=== PATIENT | female | born 1940 | race Caucasian/White ===

== ENCOUNTER → 2016-06-28 | Outpatient (CLI) | payer MEDICARE, BC ==
[2016-06-28 09:18] LABS: CHLORIDE,CL 109 mmol/L (98-110); SODIUM,NA 144 mmol/L (136-146)
== END ==
LOC: MW.CHFP 08:18
PROVIDERS: ATTEND Emergency Medicine
DX: I10 Essential (primary) hypertension (principal)
CPT/HCPCS: 36415; 80048; 80061; 99214

== ENCOUNTER → 2016-07-15 | Outpatient (CLI) | payer MEDICARE, BC | LOC: MW.CHFP 08:00 | PROVIDERS: ATTEND Emergency Medicine | DX: M81.0 Age-related osteoporosis without current pathological fracture (principal) | CPT/HCPCS: 96372; J0897 ==

== ENCOUNTER → 2016-08-24 | Outpatient (CLI) | payer MEDICARE, BC ==
--- NOTE | 2016-08-29 14:27 | MY ---
EXAMINATION: Bilateral digital mammography utilizing CAD. HISTORY: Screening exam. Comparison is made to previous studies dated 08/20/2015, 11/13/2012, 012. FINDINGS: Bilateral scattered fibroglandular densities. No suspicious calcifications, masses or ar chitectural distortions. No pathologic appearing lymph nodes, no abnormal skin thickening or nippl e inversion. CAD highlighted regions appear normal at this time. IMPRESSION: BI-RADS category I - negative mammogram. Continued screening according to ACR-ACS gu idelines suggested. THE FALSE-NEGATIVE RATE OF MAMMOGRAM IS APPROXIMATELY 10%. MANAGEMENT OF A PALPABLE ABNORMALITY MUST BE BASED UPON CLINICAL GROUNDS. SENSITIVITY FOR DETECTION OF ABNORMALITIES IN DENSE BREASTS IS LOW. NOTE: A letter will be sent to the patient regarding findings. [facility] -- SHANNON Naqvi [phone] - FAX [phone]
== END ==
LOC: MW.MAM 09:49
PROVIDERS: ATTEND Emergency Medicine
DX: C50.919 Malignant neoplasm of unspecified site of unspecified female breast (principal); Z12.31 Encounter for screening mammogram for malignant neoplasm of breast; N81.9 Female genital prolapse, unspecified
CPT/HCPCS: G0202; G0202-26; G0463

== ENCOUNTER → 2016-08-30 | Outpatient (CLI) | payer MEDICARE, BC | LOC: MW.CHOBGYN 08:00 | PROVIDERS: ATTEND Obstetrics & Gynecology | DX: N81.9 Female genital prolapse, unspecified (principal) | CPT/HCPCS: 99204 ==

== ENCOUNTER → 2016-09-13 | Outpatient (CLI) | payer MEDICARE, BC ==
[2016-09-13 09:56] LABS: CHLORIDE,CL 107 mmol/L (98-110); SODIUM,NA 141 mmol/L (136-146)
--- NOTE | 2016-09-13 14:05 | CR ---
EXAMINATION: Two-view chest (PA and Lateral views). HISTORY: Essentially hypertension. FINDINGS: The trachea is midline. The cardiomediastinal silhouette is within normal limits. No pulmonary infil trates, effusions or pneumothorax. There is prominent dextroscoliosis of the thoracic spine. IMPRESSION: No acute cardiopulmonary process.
== END ==
LOC: MW.CHFP 09:05
PROVIDERS: ATTEND Emergency Medicine
DX: Z01.818 Encounter for other preprocedural examination (principal); I10 Essential (primary) hypertension; N81.9 Female genital prolapse, unspecified
CPT/HCPCS: 36415; 71020; 71020-26; 80053; 81003; 85027; 99214

== ENCOUNTER → 2016-09-21 | Outpatient (CLI) | payer MEDICARE, BC ==
[2016-09-21 10:51] LABS: CHLORIDE,CL 108 mmol/L (98-110); SODIUM,NA 141 mmol/L (136-146)
== END ==
LOC: MW.CHOBGYN 08:00
PROVIDERS: ATTEND Obstetrics & Gynecology
DX: N81.9 Female genital prolapse, unspecified (principal); Z01.818 Encounter for other preprocedural examination
CPT/HCPCS: 36415; 80048; 85027; 86850; 86900; 86901; G0463

== ENCOUNTER 2016-09-22 06:23 | Day surgery (SDC) | payer MEDICARE, BC ==
[~2016-09-22 06:23] MED LIST: Lactated Ringers 1,000 ML IV SCH; Sodium Chloride 0.9% 10 ML Syringe FLUSH PRN; Sodium Chloride 0.9% 2.5 ML Syringe FLUSH PRN; ceFAZolin 1 GM in Premix Bag 1 BAG IV ONE
[2016-09-22] MEDS ORDERED: Scopolamine 1.5 MG Transdermal Patch TRDERM PRN (06:58)
--- NOTE | 2016-09-22 07:04 | PCM.PREANE ---
Preanesthetic Assessment - Anesthesia/Transfusion/Family Hx Anesthesia History: Prior Anesthesia Without Reaction Other Type of Anesthesia Reaction Comment: hx: Motion sickness, Denies any problem with anesthesia in past Family History of Anesthesia Reaction: No Transfusion History: No Prior Transfusion(s) Intubation History: Unknown - Review of Systems General: No Symptoms Pulmonary: No Symptoms Cardiovascular: No Symptoms Gastrointestinal: No symptoms Neurological: No Symptoms Other: Reports: None - Physical Assessment Height: 1.6 m Weight: 48.988 kg ASA Class: 2 Mental Status: Alert & Oriented x3 Airway Class: Mallampati = 2 Dentition: Reports: Implants (multiple upper front) Thyro-Mental Finger Breadths: 2 Mouth Opening Finger Breadths: 3 ROM/Head Extension: Limited/Partial Lungs: Clear to auscultation, Normal respiratory effort Cardiovascular: Regular Rate, Regular Rhythm - Lab Values: Laboratory Last Values WBC 3.91 K/uL (4.0-11.0) L 09/21/16 10:07 RBC 4.26 M/uL (4.30-5.90) L 09/21/16 10:07 Hgb 12.8 g/dL (12.0-16.0) 09/21/16 10:07 Hct 39.9 % (36.0-46.0) 09/21/16 10:07 MCV 93.7 fL (80.0-98.0) 09/21/16 10:07 MCH 30.0 pg (27.0-32.0) 09/21/16 10:07 MCHC 32.1 g/dL (31.0-37.0) 09/21/16 10:07 RDW Std Deviation 47.5 fl (28.0-62.0) 09/21/16 10:07 RDW Coeff of Tommie 14 % (11.0-15.0) 09/21/16 10:07 Plt Count 238 K/uL (150-400) 09/21/16 10:07 MPV 9.10 fL (7.40-12.00) 09/21/16 10:07 Nucleated RBC % 0.0 /100WBC 09/21/16 10:07 Nucleated RBCs # 0 K/uL 09/21/16 10:07 Sodium 141 mmol/L (136-146) 09/21/16 10:07 Potassium 4.3 mmol/L (3.5-5.1) 09/21/16 10:07 Chloride 108 mmol/L (98-110) 09/21/16 10:07 Carbon Dioxide 26 mmol/L (21-31) 09/21/16 10:07 BUN 14 mg/dL (6.0-23.0) 09/21/16 10:07 Creatinine 0.8 mg/dL (0.6-1.5) 09/21/16 10:07 Est Cr Clr Drug Dosing 47.71 mL/min 09/21/16 10:07 Estimated GFR (MDRD) > 60.0 ml/min 09/21/16 10:07 Glucose 71 mg/dL (60-110) 09/21/16 10:07 Calcium 9.0 mg/dL (8.8-10.8) 09/21/16 10:07 Blood Type O POSITIVE 09/21/16 10:07 Antibody Screen NEGATIVE 09/21/16 10:07 - Allergies Allergies/Adverse Reactions: Allergies Allergy/AdvReac Type Severity Reaction Status Date / Time latex Allergy Swelling Verified 09/20/16 12:04 Penicillins Allergy Airway Verified 09/20/16 12:04 Tightness strawberry Allergy Airway Verified 09/20/16 12:04 Tightness - Blood Blood Available: No - Anesthesia Plan Pre-Op Medication Ordered: None - Acknowledgements Anesthesia Type Planned: General Anesthesia Pt an Appropriate Candidate for the Planned Anesthesia: Yes Alternatives and Risks of Anesthesia Discussed w Pt/Guardian: Yes Pt/Guardian Understands and Agrees with Anesthesia Plan: Yes PreAnesthesia Questionnaire HEENT History: Reports: Cataract Cardiovascular History: Reports: Hypertension Respiratory History: Reports: None Gastrointestinal History: Reports: Diverticulosis Genitourinary History: Reports: None [employer]ER History: Reports: Musculoskeletal History: Reports: Arthritis, Osteoporosis, Other (See Below) (h/ o back painh/o back pain) Neurological History: Reports: None Psychiatric History: Reports: Anxiety, Depression Endocrine/Metabolic History: Reports: None Hematologic History: Reports: B12 Deficiency Immunologic History: Reports: None Oncologic (Cancer) History: Reports: Breast (h/o right breast cancer '05 treated with lumpectomy and radiation) Dermatologic History: Reports: None - Past Surgical History Head Surgeries/Procedures: Reports: None HEENT Surgical History: Reports: Cataract Surgery, Oral Surgery, Tonsillectomy Other HEENT Surgeries/Procedures: has dental implants Cardiovascular Surgical History: Reports: None Respiratory Surgical History: Reports: None GI Surgical History: Reports: Appendectomy, Colonoscopy Female Surgical History: Reports: Breast Biopsy (lumpectomy (right breast)), Section, Hysterectomy, Salpingo-Oophorectomy, Tubal Ligation Endocrine Surgical History: Reports: None Neurological Surgical History: Reports: None Musculoskeletal Surgical History: Reports: None Oncologic Surgical History: Reports: Lumpectomy - SUBSTANCE USE Smoking Status *Q: Never Smoker Recreational Drug Use History: No - HOME MEDS Home Medications: Home Meds Cyanocobalamin (Vitamin B-12) [Cyanocobalamin Injection] 1 injection IM ASDIRECTED 05/13/15 [History] Enalapril Maleate 1 tab PO BEDTIME 05/13/15 [History] Estrogens, Conjugated [Premarin Vaginal Crm] 1 applic VAG ASDIRECTED 05/13/15 [ History] LORazepam [Ativan] 1 - 2 tab PO BEDTIME PRN 05/13/15 [History] Raloxifene HCl [Evista] 60 mg PO DAILY 05/13/15 [History] Sennosides/Docusate Sodium [Senokot-S Tablet] 6 tab PO BEDTIME 05/13/15 [History ] Testosterone Cypionate 1 injection IM ASDIRECTED 05/13/15 [History] Venlafaxine [Venlafaxine HCl ER] 150 mg PO DAILY 09/20/16 [History] Zolpidem Tartrate [Zolpidem Tartrate ER] 12.5 mg PO BEDTIME PRN 09/20/16 [ History] - CURRENT (IN HOUSE) MEDS Current Meds: Current Medications Lactated Ringer's (Ringers, Lactated) 1,000 mls @ 125 mls/hr IV ASDIRECTED WANG Sodium Chloride (Saline Flush) 10 ml FLUSH ASDIRECTED PRN PRN Reason: Keep Vein Open Sodium Chloride (Saline Flush) 2.5 ml FLUSH ASDIRECTED PRN PRN Reason: Keep Vein Open Discontinued Medications Cefazolin Sodium/Dextrose 1 gm (/ Premix) 50 mls @ 100 mls/hr IV ONETIME ONE Stop: 09/21/16 09:03
[2016-09-22] MEDS ORDERED: fentaNYL 250 MCG/5 ML SDV ONE (07:36)
[2016-09-22] MEDS ORDERED: Propofol 200 MG/20 ML SDV ONE (07:36)
[2016-09-22] MEDS ORDERED: Midazolam 1 MG/ML 2 ML SDV ONE (07:36)
[2016-09-22] MEDS ORDERED: Lidocaine 2% 5 ML SDV ONE (07:36)
[2016-09-22] MEDS ORDERED: Neostigmine Methylsulfate 1 MG/ML 5 ML Syringe ONE (07:37)
[2016-09-22] MEDS ORDERED: Rocuronium 10 MG/ML 10 ML Syringe ONE (07:37)
[2016-09-22] MEDS ORDERED: Fluorescein 5 ML Vial ONE (07:44)
[2016-09-22] MEDS ORDERED: Ketorolac 30 MG/ML SDV ONE (07:44)
[2016-09-22] MEDS ORDERED: Furosemide 40 MG/4 ML VIAL ONE (09:13)
[2016-09-22] MEDS ORDERED: fentaNYL 100 MCG/2 ML SDV IVPUSH PRN (09:21)
[2016-09-22] MEDS ORDERED: Ondansetron 4 MG/2 ML SDV IVPUSH PRN (09:29)
[2016-09-22] MEDS ORDERED: Ketorolac 30 MG/ML SDV IVPUSH PRN (09:29)
[2016-09-22] MEDS ORDERED: Morphine 2 MG/ML Syringe IVPUSH PRN (09:29)
[2016-09-22] MEDS ORDERED: Ketorolac 30 MG/ML SDV IVPUSH ONE (09:29)
[2016-09-22] MEDS ORDERED: Promethazine 25 MG/ML SDV IM PRN (09:29)
--- NOTE | 2016-09-22 09:43 | PCM.OPNOTE ---
- General Post-Op/Procedure Note Date of Surgery/Procedure: 09/22/16 Operative Procedure(s): Repair pelvic relaxation, TVT. cystoscopy Pre Op Diagnosis: pelvic relaxation Post-Op Diagnosis: Same Anesthesia Technique: General ET tube Primary Surgeon: Shaquille Freeman Line Staker: Ivory Baxter EBL in mLs: 250 Complications: None Condition: Good
[2016-09-22] MEDS: Acetaminophen/oxyCODONE 325-5 MG Tab PO PRN ×3 (12:41→21:38)
[2016-09-22] MEDS ORDERED: LORazepam 1 MG Tab PO PRN (14:08)
--- NOTE | 2016-09-22 15:10 | OR ---
SURGEON: Shaquille Freeman MD DATE OF PROCEDURE: PREOPERATIVE DIAGNOSES: Pelvic relaxation, enterocele, rectocele, and stress urinary incontinence. POSTOPERATIVE DIAGNOSES: Pelvic relaxation, enterocele, rectocele, and stress urinary incontinence. OPERATION PERFORMED: Repair of the rectocele and enterocele using Xenform natural product and TVT and cystoscopy. DELICATESSEN MANAGER: IZZY Ariza. ANESTHESIA: General endotracheal intubation, Hector Olmstead and Dr. Padgett. ESTIMATED BLOOD LOSS: 200 mL. COMPLICATION: None. FINDINGS: Pelvic relaxation. INDICATION: Surgery reader refer to the admit note. PROCEDURE IN DETAIL: The patient was brought to the OR, properly identified, and after adequate level of general anesthesia, the patient was placed in lithotomy position. Prepped and draped in sterile fashion as usual. The posterior vaginal wall was infiltrated with copious amount of normal saline and then opened from the vaginal wall to the introitus and dissected laterally and then the rectocele and the enterocele were dissected and isolated from the vaginal wall. Then with sharp and blunt dissections, I could easily feel the ischial spine and then the sacral spinous ligament was identified. Then using a Capio needle, sutures anchored on both side on the ligament on both sides and then using Xenform cut into shape and anchored to the inner lining of the vaginal noble and Xenform was anchored to the ligament in the pelvis and the vaginal cuff was closed with 2-0 Vicryl interrupted sutures. Next step was attention to anterior vaginal wall and a segment of 2 cm to 3 cm has been infiltrated with normal saline, opened in midline and then dissected in tunneling fashion for the TVT and the TVT was placed in place to elevate the urethrovesical angle to repair the stress urinary incontinence and then the vaginal cuff was anteriorly closed with 2-0 Vicryl continuous interlocking suture. While we were doing the TVT, we asked the anesthesiologist to give the patient fluorescein and cystoscopy was performed. The bladder was intact. Both ureteric orifices were seen with the dye coming from both of them. Thus, the patency of both ureters were verified. Satisfied with these finding, vaginal pack was placed in the vagina and Hurtado catheter was placed for drainage. Instruments and sponge counts were correct. The patient tolerated the procedure well and went to recovery room in a stable general condition. JAYLON / JOSHUA /[id number]
--- NOTE | 2016-09-22 18:51 | PCM48HPAN ---
Post Anesthesia Note - EVALUATION WITHIN 48HRS OF ANESTHETIC Vital Signs in Normal Range: Yes Patient Participated in Evaluation: Yes Respiratory Function Stable: Yes Airway Patent: Yes Cardiovascular Function Stable: Yes Hydration Status Stable: Yes Pain Control Satisfactory: Yes Nausea and Vomiting Control Satisfactory: Yes Mental Status Recovered: Yes - COMMENTS/OBSERVATIONS Free Text/Narrative:: Pt denies problems. Pt very complimentary of anesthesia staff and overall experience.
[2016-09-23] MEDS: Acetaminophen/oxyCODONE 325-5 MG Tab PO PRN ×2 (02:00→06:24)
[2016-09-23 04:50] LABS: CHLORIDE,CL 111 mmol/L (98-110); SODIUM,NA 142 mmol/L (136-146)
--- NOTE | 2016-09-23 08:32 | PCM.SURGPN ---
- General Info Date of Service: 09/23/16 POD#: 1 Functional Status: Reports: pain controlled - Review of Systems General: Reports: No Symptoms HEENT: Reports: no symptoms Pulmonary: Reports: no symptoms Cardiovascular: Reports: No Symptoms Gastrointestinal: Reports: No symptoms Genitourinary: Reports: no symptoms Musculoskeletal: Reports: no symptoms Skin: Reports: no symptoms Neurological: Reports: No Symptoms Psychiatric: Reports: no symptoms - Patient Data Vitals - most recent: Last Vital Signs Temp 37.1 C 09/23/16 04:00 Pulse 81 09/23/16 04:00 Resp 16 09/23/16 04:00 BP 108/58 L 09/23/16 04:00 Pulse Ox 95 09/23/16 04:00 Weight - most recent: 48.988 kg I&O - last 24 hours: Intake & Output 09/22/16 09/23/16 09/23/16 22:59 06:59 14:59 Intake Total 1180 Output Total 1790 920 Balance -610 -920 Lab Results last 24 hrs: Laboratory Results - last 24 hr 09/23/16 09/23/16 Range/Units 04:02 04:02 WBC 7.32 (4.0-11.0) K/uL RBC 3.55 L (4.30-5.90) M/uL Hgb 10.7 L (12.0-16.0) g/dL Hct 33.2 L (36.0-46.0) % MCV 93.5 (80.0-98.0) fL MCH 30.1 (27.0-32.0) pg MCHC 32.2 (31.0-37.0) g/dL RDW Std Deviation 48.1 (28.0-62.0) fl RDW Coeff of Tommie 14 (11.0-15.0) % Plt Count 203 (150-400) K/uL MPV 9.30 (7.40-12.00) fL Neut % (Auto) 80.8 H (48.0-80.0) % Lymph % (Auto) 9.6 L (16.0-40.0) % [place] % (Auto) 8.1 (0.0-15.0) % Eos % (Auto) 1.2 (0.0-7.0) % Baso % (Auto) 0.3 (0.0-1.5) % Neut # (Auto) 5.9 H (1.4-5.7) K/uL Lymph # (Auto) 0.7 (0.6-2.4) K/uL [place] # (Auto) 0.6 (0.0-0.8) K/uL Eos # (Auto) 0.1 (0.0-0.7) K/uL Baso # (Auto) 0.0 (0.0-0.1) K/uL Nucleated RBC % 0.0 /100WBC Nucleated RBCs # 0 K/uL Sodium 142 (136-146) mmol/L Potassium 4.4 (3.5-5.1) mmol/L Chloride 111 H (98-110) mmol/L Carbon Dioxide 23 (21-31) mmol/L BUN 13 (6.0-23.0) mg/dL Creatinine 0.8 (0.6-1.5) mg/dL Est Cr Clr Drug Dosing 47.71 mL/min Estimated GFR (MDRD) > 60.0 ml/min Glucose 94 (60-110) mg/dL Calcium 8.4 L (8.8-10.8) mg/dL Med Orders - Current: Current Medications Enalapril Maleate (Vasotec) 10 mg PO BEDTIME COUNT INCLUDES THE [facility] Last Admin: 09/22/16 21:08 Dose: 10 mg Fentanyl (Sublimaze) 50 mcg IVPUSH Q5M PRN PRN Reason: Pain (severe 7-10) Stop: 09/23/16 09:21 Lactated Ringer's (Ringers, Lactated) 1,000 mls @ 125 mls/hr IV ASDIRECTED COUNT INCLUDES THE [facility] Last Admin: 09/22/16 07:08 Dose: 125 mls/hr Ketorolac Tromethamine (Toradol) 30 mg IVPUSH Q6H PRN PRN Reason: Pain (severe 7-10) Stop: 09/27/16 09:30 Lorazepam (Ativan) 1 - 2 mg PO BEDTIME PRN PRN Reason: Anxiety Morphine Sulfate (Morphine) 2 mg IVPUSH Q2H PRN PRN Reason: Pain (severe 7-10) Ondansetron HCl (Zofran) 4 mg IVPUSH Q6H PRN PRN Reason: Nausea/Vomiting Oxycodone/Acetaminophen (Percocet 325-5 Mg) 2 tab PO Q4H PRN PRN Reason: Pain (moderate 4-6) Last Admin: 09/23/16 06:24 Dose: 1 tab Promethazine HCl (Phenergan) 25 mg IM Q6H PRN PRN Reason: Nausea/Vomiting Scopolamine (Transderm-Scop) 1.5 mg TRDERM Q72H PRN PRN Reason: Nausea Last Admin: 09/22/16 07:08 Dose: 1.5 mg Senna/Docusate Sodium (Senna Plus) 6 tab PO BEDTIME WANG Last Admin: 09/22/16 21:14 Dose: Not Given Sodium Chloride (Saline Flush) 10 ml FLUSH ASDIRECTED PRN PRN Reason: Keep Vein Open Sodium Chloride (Saline Flush) 2.5 ml FLUSH ASDIRECTED PRN PRN Reason: Keep Vein Open Venlafaxine HCl (Effexor Xr) 150 mg PO DAILY WANG Zaleplon (Sonata) 5 mg PO BEDTIME PRN PRN Reason: Insomnia Last Admin: 09/22/16 21:08 Dose: 5 mg Discontinued Medications Enalapril Maleate (Vasotec) Confirm Administered Dose 10 mg .ROUTE .STK-MED ONE Stop: 09/22/16 20:58 Fentanyl (Sublimaze) Confirm Administered Dose 250 mcg .ROUTE .STK-MED ONE Stop: 09/22/16 07:37 Fluorescein Sodium (Ak-Fluor) Confirm Administered Dose 5 ml .ROUTE .STK-MED ONE Stop: 09/22/16 07:45 Furosemide (Lasix) Confirm Administered Dose 40 mg .ROUTE .STK-MED ONE Stop: 09/22/16 09:14 Glycopyrrolate () Confirm Administered Dose 1 mg .ROUTE .STK-MED ONE Stop: 09/22/16 07:38 Cefazolin Sodium/Dextrose 1 gm (/ Premix) 50 mls @ 100 mls/hr IV ONETIME ONE Stop: 09/21/16 09:03 Last Admin: 09/22/16 10:36 Dose: Not Given Cefazolin Sodium/Dextrose (Ancef) Confirm Administered Dose 50 mls @ as directed .ROUTE .STK-MED ONE Stop: 09/22/16 07:38 Ketorolac Tromethamine (Toradol) Confirm Administered Dose 30 mg .ROUTE .STK- MED ONE Stop: 09/22/16 07:45 Ketorolac Tromethamine (Toradol) 30 mg IVPUSH ONETIME ONE Stop: 09/22/16 09:30 Last Admin: 09/22/16 10:36 Dose: Not Given Lidocaine (Xylocaine-Mpf 2%) Confirm Administered Dose 10 ml .ROUTE .STK-MED ONE Stop: 09/22/16 07:37 Midazolam HCl (Versed 1 Mg/Ml) Confirm Administered Dose 2 mg .ROUTE .STK-MED ONE Stop: 09/22/16 07:37 Neostigmine Methylsulfate (Neostigmine) Confirm Administered Dose 5 mg .ROUTE .STK-MED ONE Stop: 09/22/16 07:38 Propofol (Diprivan 20 Ml) Confirm Administered Dose 400 mg .ROUTE .STK-MED ONE Stop: 09/22/16 07:37 Rocuronium [place] (Zemuron) Confirm Administered Dose 100 mg .ROUTE .STK-MED ONE Stop: 09/22/16 07:38 Senna/Docusate Sodium (Senna Plus) Confirm Administered Dose 6 tab .ROUTE .STK- MED ONE Stop: 09/22/16 20:59 Zaleplon (Sonata) Confirm Administered Dose 5 mg .ROUTE .STK-MED ONE Stop: 09/22/16 20:58 - Exam Wound/Incisions: healing well General: alert, oriented HEENT: Pupils equal Neck: supple Lungs: Clear to auscultation, Normal respiratory effort Cardiovascular: Regular Rate, Regular Rhythm Abdomen: bowel sounds present, soft, no tenderness, no distension Extremities: no edema Skin: warm, dry, intact Neurological: no new focal deficit Psy/Mental Status: alert, normal affect, normal mood - Problem List Review Problem List Initiated/Reviewed/Updated: Yes - My Orders Last 24 Hours: Active Orders 24 hr Category Date Time Status Antiembolic Devices [RC] PER UNIT ROUTINE Care 09/22/16 09:32 Active Notify Provider Vital Signs [RC] ASDIRECTED Care 09/22/16 09:30 Active RT Incentive Spirometry [RC] Q2HWA Care 09/22/16 09:30 Active Up With Assistance [RC] PER UNIT ROUTINE Care 09/22/16 09:30 Active Up ad Felisha [RC] PER UNIT ROUTINE Care 09/22/16 09:30 Active Urinary Catheter Removal [RC] Per Unit Routine Care 09/22/16 09:30 Active Vital Signs [RC] PER UNIT ROUTINE Care 09/22/16 09:30 Active Regular Diet [DIET] Diet 09/22/16 Lunch Active Acetaminophen/oxyCODONE [Percocet 325-5 MG] Med 09/22/16 09:29 Active 2 tab PO Q4H PRN Docusate Sodium/Sennosides [Senna Plus] Med 09/22/16 21:00 Active 6 tab PO BEDTIME Enalapril [Vasotec] Med 09/22/16 21:00 Active 10 mg PO BEDTIME Ketorolac [Toradol] Med 09/22/16 09:29 Active 30 mg IVPUSH Q6H PRN LORazepam [Ativan] Med 09/22/16 14:08 Active 1 - 2 mg PO BEDTIME PRN Morphine Med 09/22/16 09:29 Active 2 mg IVPUSH Q2H PRN Ondansetron [Zofran] Med 09/22/16 09:29 Active 4 mg IVPUSH Q6H PRN Promethazine [Phenergan] Med 09/22/16 09:29 Active 25 mg IM Q6H PRN Venlafaxine [Effexor XR] Med 09/23/16 09:00 Active 150 mg PO DAILY Zaleplon [Sonata] Med 09/22/16 14:08 Active 5 mg PO BEDTIME PRN fentaNYL [Sublimaze] Med 09/22/16 09:21 Active 50 mcg IVPUSH Q5M PRN Peripheral IV Discontinue [OM.PC] Routine Oth 09/22/16 09:30 Ordered Sequential Compression Device [OM.PC] Per Unit Routine Oth 09/22/16 09:30 Ordered Resuscitation Status Routine Resus Stat 09/22/16 09:29 Ordered Medication Orders Enalapril Maleate (Vasotec) 10 mg PO BEDTIME COUNT INCLUDES THE [facility] Last Admin: 09/22/16 21:08 Dose: 10 mg Fentanyl (Sublimaze) 50 mcg IVPUSH Q5M PRN PRN Reason: Pain (severe 7-10) Stop: 09/23/16 09:21 Lactated Ringer's (Ringers, Lactated) 1,000 mls @ 125 mls/hr IV ASDIRECTED COUNT INCLUDES THE [facility] Last Admin: 09/22/16 07:08 Dose: 125 mls/hr Ketorolac Tromethamine (Toradol) 30 mg IVPUSH Q6H PRN PRN Reason: Pain (severe 7-10) Stop: 09/27/16 09:30 Lorazepam (Ativan) 1 - 2 mg PO BEDTIME PRN PRN Reason: Anxiety Morphine Sulfate (Morphine) 2 mg IVPUSH Q2H PRN PRN Reason: Pain (severe 7-10) Ondansetron HCl (Zofran) 4 mg IVPUSH Q6H PRN PRN Reason: Nausea/Vomiting Oxycodone/Acetaminophen (Percocet 325-5 Mg) 2 tab PO Q4H PRN PRN Reason: Pain (moderate 4-6) Last Admin: 09/23/16 06:24 Dose: 1 tab Admin: 09/23/16 02:00 Dose: 1 tab Admin: 09/22/16 21:38 Dose: 1 tab Admin: 09/22/16 18:31 Dose: 1 tab Admin: 09/22/16 12:41 Dose: 2 tab Promethazine HCl (Phenergan) 25 mg IM Q6H PRN PRN Reason: Nausea/Vomiting Scopolamine (Transderm-Scop) 1.5 mg TRDERM Q72H PRN PRN Reason: Nausea Last Admin: 09/22/16 07:08 Dose: 1.5 mg Senna/Docusate Sodium (Senna Plus) 6 tab PO BEDTIME WANG Last Admin: 09/22/16 21:14 Dose: Sodium Chloride (Saline Flush) 10 ml FLUSH ASDIRECTED PRN PRN Reason: Keep Vein Open Sodium Chloride (Saline Flush) 2.5 ml FLUSH ASDIRECTED PRN PRN Reason: Keep Vein Open Venlafaxine HCl (Effexor Xr) 150 mg PO DAILY WANG Zaleplon (Sonata) 5 mg PO BEDTIME PRN PRN Reason: Insomnia Last Admin: 09/22/16 21:08 Dose: 5 mg - Assessment Assessment (Free Text/Narrative):: Status post vaginal repair patient doing well her H&H is stable there is no vaginal bleeding vaginal pack is removed today and the [place] catheter would be removed today - Plan Plan (Free Text/Narrative):: Planning to send the patient home prescription for Percocet 7.5/325 was given for postoperative pain a postoperative instruction is given to the patient there is no restriction on her diet she is to come to the office in one week for postoperative followup
--- NOTE | 2016-09-23 08:33 | PCM.DCSUM1 ---
Discharge Summary - Discharge Data Discharge Date: 09/23/16 Discharge Disposition: Home, Self-Care 01 Condition: Good - Patient Summary/Data Operative Procedure(s) Performed: Repair pelvic relaxation, TVT. cystoscopy - Patient Instructions Diet: Usual Diet as Tolerated Driving: Do Not Drive Showering/Bathing: May Shower Notify Provider of: Fever, Increased Pain, Swelling and Redness, Nausea and/or Vomiting - Discharge Plan Home Medications: Home Meds Cyanocobalamin (Vitamin B-12) [Cyanocobalamin Injection] 1 injection IM ASDIRECTED 05/13/15 [History] Enalapril Maleate 1 tab PO BEDTIME 05/13/15 [History] Estrogens, Conjugated [Premarin Vaginal Crm] 1 applic VAG ASDIRECTED 05/13/15 [ History] LORazepam [Ativan] 1 - 2 tab PO BEDTIME PRN 05/13/15 [History] Raloxifene HCl [Evista] 60 mg PO DAILY 05/13/15 [History] Sennosides/Docusate Sodium [Senokot-S Tablet] 6 tab PO BEDTIME 05/13/15 [History ] Testosterone Cypionate 1 injection IM ASDIRECTED 05/13/15 [History] Venlafaxine [Venlafaxine HCl ER] 150 mg PO DAILY 09/20/16 [History] Zolpidem Tartrate [Zolpidem Tartrate ER] 12.5 mg PO BEDTIME PRN 09/20/16 [ History] Referrals: [facility] [Outside] Shaquille Freeman MD [Physician] - (1 week- September 30 @ 2:30pm w/ week- November 07 @ 9:30am w/ Dr. Freeman ) - General Info Date of Service: 09/23/16 Functional Status: Reports: pain controlled - Review of Systems General: Reports: No Symptoms HEENT: Reports: no symptoms Pulmonary: Reports: no symptoms Cardiovascular: Reports: No Symptoms Gastrointestinal: Reports: No symptoms Genitourinary: Reports: no symptoms Musculoskeletal: Reports: no symptoms Skin: Reports: no symptoms Neurological: Reports: No Symptoms Psychiatric: Reports: no symptoms - Patient Data Vitals - Most Recent: Last Vital Signs Temp 37.1 C 09/23/16 04:00 Pulse 81 09/23/16 04:00 Resp 16 09/23/16 04:00 BP 108/58 L 09/23/16 04:00 Pulse Ox 95 09/23/16 04:00 Weight - Most Recent: 48.988 kg I&O - Last 24 hours: Intake & Output 09/22/16 09/23/16 09/23/16 22:59 06:59 14:59 Intake Total 1180 Output Total 1790 920 Balance -610 -920 Lab Results - Last 24 hrs: Laboratory Results - last 24 hr 09/23/16 09/23/16 Range/Units 04:02 04:02 WBC 7.32 (4.0-11.0) K/uL RBC 3.55 L (4.30-5.90) M/uL Hgb 10.7 L (12.0-16.0) g/dL Hct 33.2 L (36.0-46.0) % MCV 93.5 (80.0-98.0) fL MCH 30.1 (27.0-32.0) pg MCHC 32.2 (31.0-37.0) g/dL RDW Std Deviation 48.1 (28.0-62.0) fl RDW Coeff of Tommie 14 (11.0-15.0) % Plt Count 203 (150-400) K/uL MPV 9.30 (7.40-12.00) fL Neut % (Auto) 80.8 H (48.0-80.0) % Lymph % (Auto) 9.6 L (16.0-40.0) % Levy % (Auto) 8.1 (0.0-15.0) % Eos % (Auto) 1.2 (0.0-7.0) % Baso % (Auto) 0.3 (0.0-1.5) % Neut # (Auto) 5.9 H (1.4-5.7) K/uL Lymph # (Auto) 0.7 (0.6-2.4) K/uL Levy # (Auto) 0.6 (0.0-0.8) K/uL Eos # (Auto) 0.1 (0.0-0.7) K/uL Baso # (Auto) 0.0 (0.0-0.1) K/uL Nucleated RBC % 0.0 /100WBC Nucleated RBCs # 0 K/uL Sodium 142 (136-146) mmol/L Potassium 4.4 (3.5-5.1) mmol/L Chloride 111 H (98-110) mmol/L Carbon Dioxide 23 (21-31) mmol/L BUN 13 (6.0-23.0) mg/dL Creatinine 0.8 (0.6-1.5) mg/dL Est Cr Clr Drug Dosing 47.71 mL/min Estimated GFR (MDRD) > 60.0 ml/min Glucose 94 (60-110) mg/dL Calcium 8.4 L (8.8-10.8) mg/dL Med Orders - Current: Current Medications Enalapril Maleate (Vasotec) 10 mg PO BEDTIME [facility] Last Admin: 09/22/16 21:08 Dose: 10 mg Fentanyl (Sublimaze) 50 mcg IVPUSH Q5M PRN PRN Reason: Pain (severe 7-10) Stop: 09/23/16 09:21 Lactated Ringer's (Ringers, Lactated) 1,000 mls @ 125 mls/hr IV ASDIRECTED [facility] Last Admin: 09/22/16 07:08 Dose: 125 mls/hr Ketorolac Tromethamine (Toradol) 30 mg IVPUSH Q6H PRN PRN Reason: Pain (severe 7-10) Stop: 09/27/16 09:30 Lorazepam (Ativan) 1 - 2 mg PO BEDTIME PRN PRN Reason: Anxiety Morphine Sulfate (Morphine) 2 mg IVPUSH Q2H PRN PRN Reason: Pain (severe 7-10) Ondansetron HCl (Zofran) 4 mg IVPUSH Q6H PRN PRN Reason: Nausea/Vomiting Oxycodone/Acetaminophen (Percocet 325-5 Mg) 2 tab PO Q4H PRN PRN Reason: Pain (moderate 4-6) Last Admin: 09/23/16 06:24 Dose: 1 tab Promethazine HCl (Phenergan) 25 mg IM Q6H PRN PRN Reason: Nausea/Vomiting Scopolamine (Transderm-Scop) 1.5 mg TRDERM Q72H PRN PRN Reason: Nausea Last Admin: 09/22/16 07:08 Dose: 1.5 mg Senna/Docusate Sodium (Senna Plus) 6 tab PO BEDTIME [facility] Last Admin: 09/22/16 21:14 Dose: Not Given Sodium Chloride (Saline Flush) 10 ml FLUSH ASDIRECTED PRN PRN Reason: Keep Vein Open Sodium Chloride (Saline Flush) 2.5 ml FLUSH ASDIRECTED PRN PRN Reason: Keep Vein Open Venlafaxine HCl (Effexor Xr) 150 mg PO DAILY WANG Zaleplon (Sonata) 5 mg PO BEDTIME PRN PRN Reason: Insomnia Last Admin: 09/22/16 21:08 Dose: 5 mg Discontinued Medications Enalapril Maleate (Vasotec) Confirm Administered Dose 10 mg .ROUTE .STK-MED ONE Stop: 09/22/16 20:58 Fentanyl (Sublimaze) Confirm Administered Dose 250 mcg .ROUTE .STK-MED ONE Stop: 09/22/16 07:37 Fluorescein Sodium (Ak-Fluor) Confirm Administered Dose 5 ml .ROUTE .STK-MED ONE Stop: 09/22/16 07:45 Furosemide (Lasix) Confirm Administered Dose 40 mg .ROUTE .STK-MED ONE Stop: 09/22/16 09:14 Glycopyrrolate () Confirm Administered Dose 1 mg .ROUTE .STK-MED ONE Stop: 09/22/16 07:38 Cefazolin Sodium/Dextrose 1 gm (/ Premix) 50 mls @ 100 mls/hr IV ONETIME ONE Stop: 09/21/16 09:03 Last Admin: 09/22/16 10:36 Dose: Not Given Cefazolin Sodium/Dextrose (Ancef) Confirm Administered Dose 50 mls @ as directed .ROUTE .STK-MED ONE Stop: 09/22/16 07:38 Ketorolac Tromethamine (Toradol) Confirm Administered Dose 30 mg .ROUTE .STK- MED ONE Stop: 09/22/16 07:45 Ketorolac Tromethamine (Toradol) 30 mg IVPUSH ONETIME ONE Stop: 09/22/16 09:30 Last Admin: 09/22/16 10:36 Dose: Not Given Lidocaine (Xylocaine-Mpf 2%) Confirm Administered Dose 10 ml .ROUTE .STK-MED ONE Stop: 09/22/16 07:37 Midazolam HCl (Versed 1 Mg/Ml) Confirm Administered Dose 2 mg .ROUTE .STK-MED ONE Stop: 09/22/16 07:37 Neostigmine Methylsulfate (Neostigmine) Confirm Administered Dose 5 mg .ROUTE .STK-MED ONE Stop: 09/22/16 07:38 Propofol (Diprivan 20 Ml) Confirm Administered Dose 400 mg .ROUTE .STK-MED ONE Stop: 09/22/16 07:37 Rocuronium Gilead (Zemuron) Confirm Administered Dose 100 mg .ROUTE .STK-MED ONE Stop: 09/22/16 07:38 Senna/Docusate Sodium (Senna Plus) Confirm Administered Dose 6 tab .ROUTE .STK- MED ONE Stop: 09/22/16 20:59 Zaleplon (Sonata) Confirm Administered Dose 5 mg .ROUTE .STK-MED ONE Stop: 09/22/16 20:58 - Exam General: Reports: alert, oriented HEENT: Reports: Pupils equal, Pupils reactive, EOMI, Mucous membr. moist/pink Neck: Reports: supple Lungs: Reports: Clear to auscultation, Normal respiratory effort Cardiovascular: Reports: Regular Rate, Regular Rhythm Abdomen: Reports: bowel sounds present, soft, no tenderness, no distension (Female) Exam: Normal External Exam, Normal Speculum Exam, Normal Bimanual Exam Rectal (Female) Exam: Normal Exam, Normal Rectal Tone Back Exam: Reports: Normal Inspection, Full Range of Motion Extremities: Reports: no edema, normal pulses Skin: Reports: warm, dry, intact Wound/Incisions: Reports: healing well Neurological: Reports: no new focal deficit Psy/Mental Status: Reports: alert, normal affect, normal mood *Q Meaningful Use (DIS) - VTE *Q VTE Criteria *Q: - Stroke *Q Stroke Criteria *Q: - AMI *Q AMI Criteria *Q:
[2016-09-23 08:39] VITALS: BP 117/59
[2016-09-23] MEDS ORDERED: Venlafaxine 75 MG Cap.ER PO SCH (09:00)
== END 2016-09-23 09:35 | disposition home or self-care (01) ==
LOC: MW.SDS 06:23 → MW.OB 10:46 → MW.SDS 09-23 09:35
PROVIDERS: ATTEND Obstetrics & Gynecology
PROC: 0UQF7ZZ Repair Cul-de-sac, Via Natural or Artificial Opening (ICD-10-PCS; principal; 2016-09-22)
PROC: 0JQC0ZZ Repair Pelvic Region Subcutaneous Tissue and Fascia, Open Approach (ICD-10-PCS; 2016-09-22)
PROC: 0TSD0ZZ Reposition Urethra, Open Approach (ICD-10-PCS; 2016-09-22)
PROC: 0JQC0ZZ Repair Pelvic Region Subcutaneous Tissue and Fascia, Open Approach (ICD-10-PCS; 2016-09-22)
DX: N81.89 Other female genital prolapse (principal); N81.5 Vaginal enterocele; N81.6 Rectocele; N39.3 Stress incontinence (female) (male); I10 Essential (primary) hypertension; M19.90 Unspecified osteoarthritis, unspecified site; M81.0 Age-related osteoporosis without current pathological fracture; F41.9 Anxiety disorder, unspecified; F32.9 Major depressive disorder, single episode, unspecified; E53.8 Deficiency of other specified B group vitamins; Z85.3 Personal history of malignant neoplasm of breast; Z79.899 Other long term (current) drug therapy; Z88.0 Allergy status to penicillin; Z91.018 Allergy to other foods; Z91.040 Latex allergy status; Z98.49 Cataract extraction status, unspecified eye; Z98.51 Tubal ligation status; Z90.49 Acquired absence of other specified parts of digestive tract; Z90.710 Acquired absence of both cervix and uterus; Z90.721 Acquired absence of ovaries, unilateral; Z90.79 Acquired absence of other genital organ(s); Z90.89 Acquired absence of other organs; Z98.890 Other specified postprocedural states
CPT/HCPCS: 36415; 57250; 57288; 80048; 85025; 85027; 86850; 86900; 86901; A9270; J0690; J1885; J1940; J2250; J3010; J7120; 00942; C1763; C1781; J2704